=== PATIENT | female | born 1990 | race Native Hawaiian/Other Pacific Islander ===

== ENCOUNTER → 2021-12-05 | Outpatient (CLI) | payer MEDICAID ==
--- NOTE | 2021-12-05 18:45 | Diagnostic Imaging Report ---
INDICATION: survey. TECHNIQUE: Multiple real-time grayscale images were obtained over the gravid uterus. COMPARISON: None. FINDINGS: There is single live fetus in transverse presentation with head to maternal left. heart rate was recorded at 161 BPM. Placenta is posterior. Amniotic fluid volume is normal. Cervical length is 3.4 cm. survey shows kidneys, bladder and stomach to be unremarkable. brain is unremarkable. There is a four-chamber heart. There is a three-vessel cord with normal insertion. spine is unremarkable. Biometrical measurements are as follows: Biparietal 4.49 cm, age 19 weeks 5 days. Head circumference 16.82 cm, age 19 weeks 4 days. Abdominal circumference 15.36 cm, age 20 weeks 4 days. Femur length 2.89 cm, age 19 weeks 0 days. Sonographic estimate age: 19 weeks 5 days. Sonographic estimated date of delivery: 04/26/2022. Estimated Weight: 311 gm (+/- 46 gm). LMP percentile: 65%. heart rate: 161 beats per minute. number: 1 of 1. IMPRESSION: Single live IUP of 19 weeks 5 days gestational age. Estimated date of confinement sonographically is 04/26/2022. Dictated by: Dictated on workstation # [id number]
== END ==
LOC: RAD 12:30
PROVIDERS: ATTEND Obstetrics & Gynecology
DX: Z34.02 Encounter for supervision of normal first pregnancy, second trimester (principal); Z3A.19 19 weeks gestation of pregnancy
CPT/HCPCS: 76805

== ENCOUNTER 2022-02-23 21:37 | Inpatient (IN) | payer MEDICAID ==
[~2022-02-23] VITALS: Ht 152.4 cm; Wt 68.4 kg
--- NOTE | 2022-02-23 22:09 | ED General ---
General Stated Complaint: SEPTIC Source of Information: Patient, Family (sig other) Exam Limitations: No Limitations History of Present Illness Date Seen by Provider: Feb 23, 2022 Time Seen by Provider: 21:52 Initial Comments Patient is a 31-year-old female, A1 with an estimated due date April 28, 2022 who presents to the emergency department with a chief complaint of being "septic". Patient states that she went to [facility] 2 nights ago on Saturday with complaints of abdominal cramping, contractions. She states as does her significant other that she was evaluated, a swab was placed in her vagina and she was told to go home. No laboratory studies or ultrasound or other evaluation was reported by the patient. She states she is "been in the bed" since Saturday not feeling well. She states she subsequently went back in the middle of the night night and on evaluation arm was palpated in the vagina and she subsequently delivered a stillborn . Per reported due date of April 28 she would have been approximately 30 5/7 weeks gestation. Patient states that she did receive IV antibiotics while at [facility]. But both she and her significant other felt like they were not being treated appropriately and elected to leave that hospital AGAINST MEDICAL ADVICE and pursue treatment here. Patient states she has been receiving her care from Dr. Golden. She denies any significant pain currently. Per review of the medical records from [place] she was febrile (101) and there was concern for chorioamnionitis. She does admit to methamphetamine use approximately 2 weeks ago. No reports of URI, runny nose, congestion, sore throat. No cough or shortness of breath. No nausea or vomiting. No diarrhea. She has been having a foul- smelling vaginal discharge since delivery she states. She was exposed to COVID a few weeks ago and is not vaccinated. Allergies she states are to Bactrim, penicillin and cephalexin. She has had a former LEEP procedure. No other surgeries. All other review of systems reviewed and negative except as stated Timing/Duration: 1-2 Days Associated Systoms: Malaise Allergies and Home Medications Allergies Coded Allergies: Penicillins (Unverified Allergy, Unknown, 12/10/14) cephalexin (Unverified Allergy, Unknown, 12/10/14) sulfamethoxazole (Verified Allergy, Unknown, 02/23/22) trimethoprim (Verified Allergy, Unknown, 02/23/22) Patient Home Medication List Home Medication List Reviewed: Yes Review of Systems Review of Systems Constitutional: see HPI EENTM: no symptoms reported Respiratory: no symptoms reported Cardiovascular: no symptoms reported Gastrointestinal: abdominal pain : No Musculoskeletal: no symptoms reported Skin: no symptoms reported All Other Systems Reviewed Negative Unless Noted: Yes Past Sbcrebl-Omnhsm-Njhaiq Hx Immunizations Up To Date Tetanus Booster (TDap): Unknown Past Medical History Female Reproductive Disorders: Ovarian Cyst Chronic Back Pain Anxiety Adverse Reaction/Blood Tranf: No Physical Exam Vital Signs Vital Signs - First Documented Capillary Refill : Height, Weight, BMI Height: 5'6" Weight: 144lbs. oz. 65.548811zl; BMI Method: General Appearance: No Apparent Distress, WD/WN Eyes: Bilateral Eye Normal Inspection, Bilateral Eye PERRL, Bilateral Eye EOMI HEENT: PERRL/EOMI, Moist Mucous Membranes Neck: Full Range of Motion, Normal Inspection, Supple Respiratory: Lungs Clear, Normal Breath Sounds, No Accessory Muscle Use, No Respiratory Distress Cardiovascular: Regular Rate, Rhythm, Normal Peripheral Pulses, Tachycardia (103) Gastrointestinal: Normal Bowel Sounds, Soft, Tenderness (mild suprapubic and lower abdominal tenderness; fundus 3 fb below umbilicus) Genital/Rectal: Other ( deferred) Extremity: Normal Capillary Refill, Normal Range of Motion, No Calf Tenderness, No Pedal Edema Neurologic/Psychiatric: Alert, Oriented x3, No Motor/Sensory Deficits, Normal Mood/Affect, Other (no clonus; 2+ patellar reflexes bilat) Skin: Warm/Dry, Pallor (alightly pale) Focused Exam Sepsis Stage: Sepsis Possible Source: Genitouriary Lactate Level 02/23/22 22:12: Lactic Acid Level 1.23 Time of Focused Exam: 23:00 Respiratory: Lungs Clear, Normal Breath Sounds, No Accessory Muscle Use, No Respiratory Distress Cardiovascular: Regular Rate, Rhythm (80's), Normal Peripheral Pulses Capillary Refill: Less Than 3 Seconds Peripheral Pulses: 2+ Radial Pulses (R), 2+ Radial Pulses (L) Skin: warm/dry, pallor (slightly pale) Lactic Acid Level Laboratory Tests Test 02/23/22 22:12 Lactic Acid Level 1.23 MMOL/L (0.50-2.00) Within 3hrs of presentation: Admin fluids, Admin ABX, Blood cultures prior to ABX's, Focus exam, Lactate level Progress/Results/Core Measures Suspected Sepsis SIRS Temperature: Pulse: Respiratory Rate: Laboratory Tests 02/23/22 22:12: White Blood Count 42.8*H Blood Pressure / Mean: 02/23/22 22:12: Lactic Acid Level 1.23 Laboratory Tests 02/23/22 22:12: Creatinine 0.99, INR Comment 1.1, Platelet Count 217, Total Bilirubin 0.3 Results/Orders Lab Results Laboratory Tests Test 02/23/22 22:12 02/23/22 22:38 02/23/22 22:53 02/23/22 23:01 Range/Units White Blood Count 42.8 *H 4.3-11.0 10^3/uL Red Blood Count 3.58 L 3.80-5.11 10^6/uL Hemoglobin 11.8 11.5-16.0 g/dL Hematocrit 33 L 35-52 % Mean Corpuscular Volume 91 80-99 fL Mean Corpuscular Hemoglobin 33 25-34 pg Mean Corpuscular Hemoglobin Concent 36 32-36 g/dL Red Cell Distribution Width 12.9 10.0-14.5 % Platelet Count 217 130-400 10^3/uL Mean Platelet Volume 10.7 9.0-12.2 fL Immature Granulocyte % (Auto) 3 % Neutrophils (%) (Auto) 87 H 42-75 % Lymphocytes (%) (Auto) 5 L 12-44 % Monocytes (%) (Auto) 5 0-12 % Eosinophils (%) (Auto) 0 0-10 % Basophils (%) (Auto) 0 0-10 % Neutrophils # (Auto) 37.2 H 1.8-7.8 10^3/uL Lymphocytes # (Auto) 2.1 1.0-4.0 10^3/uL Monocytes # (Auto) 2.1 H 0.0-1.0 10^3/uL Eosinophils # (Auto) 0.0 0.0-0.3 10^3/uL Basophils # (Auto) 0.0 0.0-0.1 10^3/uL Immature Granulocyte # (Auto) 1.3 H 0.0-0.1 10^3/uL Neutrophils % (Manual) 90 % Lymphocytes % (Manual) 7 % Monocytes % (Manual) 3 % Toxic Granulation 1+ Eugene Cells SLIGHT Prothrombin Time 14.7 12.2-14.7 SEC INR Comment 1.1 0.8-1.4 Activated Partial Thromboplast Time 38 H 24-35 SEC Sodium Level 133 L 135-145 MMOL/L Potassium Level 3.6 3.6-5.0 MMOL/L Chloride Level 106 98-107 MMOL/L Carbon Dioxide Level 15 L 21-32 MMOL/L Anion Gap 12 5-14 MMOL/L Blood Urea Nitrogen 16 7-18 MG/DL Creatinine 0.99 0.60-1.30 MG/DL Estimat Glomerular Filtration Rate 77 BUN/Creatinine Ratio 16 Glucose Level 89 70-105 MG/DL Lactic Acid Level 1.23 0.50-2.00 MMOL/L Calcium Level 8.8 8.5-10.1 MG/DL Corrected Calcium 10.0 8.5-10.1 MG/DL Magnesium Level 1.6 1.6-2.4 MG/DL Total Bilirubin 0.3 0.1-1.0 MG/DL Aspartate Amino Transf (AST/SGOT) 17 5-34 U/L Alanine Aminotransferase (ALT/SGPT) 10 0-55 U/L Alkaline Phosphatase 199 H 40-136 U/L C-Reactive Protein High Sensitivity 37.18 H 0.00-0.50 MG/DL Total Protein 5.7 L 6.4-8.2 GM/DL Albumin 2.5 L 3.2-4.5 GM/DL Urine Color YELLOW Urine Clarity SL CLOUDY Urine pH 5.5 5-9 Urine Specific [place] 1.010 L 1.016-1.022 Urine Protein TRACE H NEGATIVE Urine Glucose (UA) NEGATIVE NEGATIVE Urine Ketones NEGATIVE NEGATIVE Urine Nitrite NEGATIVE NEGATIVE Urine Bilirubin NEGATIVE NEGATIVE Urine Urobilinogen 1.0 < = 1.0 MG/DL Urine Leukocyte Esterase TRACE H NEGATIVE Urine RBC (Auto) 3+ H NEGATIVE Urine RBC 2-5 H /HPF Urine WBC 2-5 /HPF Urine Squamous Epithelial Cells 0-2 /HPF Urine Crystals NONE /LPF Urine Bacteria FEW H /HPF Urine Casts PRESENT /LPF Urine Hyaline Casts RARE /LPF Urine Mucus NEGATIVE /LPF Urine Culture Indicated CULTURE PENDING SARS-CoV-2 RNA (RT-PCR) Not Detected Not Detecte Urine Opiates Screen NEGATIVE NEGATIVE Urine Oxycodone Screen NEGATIVE NEGATIVE Urine Methadone Screen NEGATIVE NEGATIVE Urine Propoxyphene Screen NEGATIVE NEGATIVE Urine Barbiturates Screen NEGATIVE NEGATIVE Ur Tricyclic Antidepressants Screen NEGATIVE NEGATIVE Urine Phencyclidine Screen NEGATIVE NEGATIVE Urine Amphetamines Screen NEGATIVE NEGATIVE Urine Methamphetamines Screen NEGATIVE NEGATIVE Urine Benzodiazepines Screen NEGATIVE NEGATIVE Urine Cocaine Screen NEGATIVE NEGATIVE Urine Cannabinoids Screen NEGATIVE NEGATIVE Micro Results Microbiology 02/23/22 Urine Culture - Preliminary, Resulted Gram Negative Rei 02/23/22 Wet Prep - Final, Complete 02/23/22 Blood Culture - Preliminary, Resulted No growth 02/23/22 Blood Culture - Preliminary, Resulted No growth My Orders Orders - BJ ROMO MD Cbc With Automated Diff (02/23/22 22:02) Comprehensive Metabolic Panel (02/23/22 22:02) Blood Culture (02/23/22:02) Sputum Culture (02/23/22:02) Urinalysis (02/23/22:) Urine Culture (02/23/22:02) Protime With Inr (02/23/22:) Partial Thromboplastin Time (02/23/22:02) Chest 1 View, Ap/Pa Only (02/23/22:02) Ed Iv/Invasive Line Start (02/23/22 22:02) Ed Iv/Invasive Line Start (02/23/22 22:02) Vital Signs Adult Sepsis Patie Q15M (02/23/22:02) O2 (02/23/22:02) Remove Rings In Anticipation O (02/23/22:02) Lactic Acid Analyzer (02/23/22 22:02) Hs C Reactive Protein (02/23/22:02) Magnesium (02/23/22 22:02) Ns Iv 1000 Ml (Sodium Chloride 0.9%) (02/23/22 22:15) Covid 19 Inhouse Test (02/23/22 22:09) Isolation Central Supply Req (02/23/22 22:09) Genital Culture (02/23/22 22:09) Manual Differential (02/23/22 22:12) Chlamydia Trachomatis Swab (02/23/22 22:46) Neisseria Gonorrhea Swab (02/23/22 22:46) Wet Prep (02/23/22 22:46) Straight Cath (Urinary) (02/23/22 22:54) Drug Screen Stat (Urine) (02/23/22 23:00) Ns Iv 1000 Ml (Sodium Chloride 0.9%) (02/23/22 23:00) Vital Signs/I&O 02/23/22 02/23/22 21:50 21:50 Temp 36.4 Pulse 97 Resp 16 B/P (MAP) 103/69 (80) Pulse Ox 99 O2 Delivery Room Air Room Air Capillary Refill : Progress Note : Time: 23:00 Progress Note Discussed with Dr. Garcia on for Dr. Golden. Would like the patient on MedSurg. Clindamycin 900 mg IV every 8 hours and gentamicin 7.5 mg/kg/day IV. He states she may eat. He would like Tylenol [id number] every 6 hours 1 g. He anticipates that she may need to be in for a couple of days. Plan of care was communicated to the patient and her significant other, she is agreeable. Diagnostic Imaging Diagonstic Imaging: Xray Plain Films/CT/US/NM/MRI: chest Comments [facility], [place] NAME: [facility] REC#: [id number] PT STATUS: REG ER : 1990 PHYSICIAN: BJ ROMO MD ADMIT DATE: 02/23/22/ER Signed Date of Exam:02/23/22 CHEST 1 VIEW, AP/PA ONLY EXAMINATION: Chest 1 view. HISTORY: "Sepsis" post delivery today demise COMPARISON: None available. FINDINGS: The lungs are clear without edema or pneumonia. No pleural effusion or pneumothorax. Heart size is normal. IMPRESSION: Clear lungs. Dictated by: Dictated on workstation # [id number] Dict: 02/23/222246 Trans: 02/23/222249 [facility] [id number] Interpreted by: RIYA DUNHAM MD Electronically signed by: RIYA DUNHAM MD 02/23/222249 Departure Communication (Admissions) Time/Spoke to Admitting Phy: 22:[address] Garcia, OB - would like Clinda 900mg IV Q3 and gent 7.5mg/kg/day Impression Primary Impression: Sepsis after obstetrical procedure Disposition: ADMITTED INPATIENT Condition: Stable Admissions Decision to Admit Reason: Admit from ER (General) Decision to Admit/Date: Feb 23, 2022 Time/Decision to Admit Time: 22:31 Departure-Patient Inst. Referrals: [facility] (PCP/Family) Primary Care Physician BJ ROMO MD Feb 23, 2022 22:09
[2022-02-23] MEDS ORDERED: NS IV 1000 ML 1,000 ML IV SCH ×2 (22:15→23:00)
[2022-02-23 22:18] LABS: BASOPHILS % (AUTO) 0 % (0-10); EOSINOPHILS % (AUTO) 0 % (0-10); HEMATOCRIT 33 % (35-52); HEMOGLOBIN 11.8 g/dL (11.5-16.0); LYMPHOCYTES # (AUTO) 2.1 10^3/uL (1.0-4.0); LYMPHOCYTES % (AUTO) 5 % (12-44); MEAN CORPUSCULAR HEMOGLOBIN 33 pg (25-34); MEAN CORPUSCULAR HGB CONC 36 g/dL (32-36); MEAN CORPUSCULAR VOLUME 91 fL (80-99); MEAN PLATELET VOLUME 10.7 fL (9.0-12.2); MONOCYTES # (AUTO) 2.1 10^3/uL (0.0-1.0); MONOCYTES % (AUTO) 5 % (0-12); NEUTROPHILS # (AUTO) 37.2 10^3/uL (1.8-7.8); NEUTROPHILS % (AUTO) 87 % (42-75); PLATELET COUNT 217 10^3/uL (130-400)
[2022-02-23 22:19] LABS: WHITE BLOOD COUNT 42.8 10^3/uL (4.3-11.0)
[2022-02-23 22:25] LABS: ALBUMIN 2.5 GM/DL (3.2-4.5); POTASSIUM 3.6 MMOL/L (3.6-5.0)
[2022-02-23 22:26] LABS: CALCIUM 8.8 MG/DL (8.5-10.1)
[2022-02-23 22:28] LABS: INR 1.1 (0.8-1.4); PROTHROMBIN TIME PATIENT 14.7 SEC (12.2-14.7); TOTAL PROTEIN 5.7 GM/DL (6.4-8.2)
[2022-02-23 22:29] LABS: BILIRUBIN,TOTAL 0.3 MG/DL (0.1-1.0)
[2022-02-23 22:31] LABS: CREATININE SERUM 0.99 MG/DL (0.60-1.30)
[2022-02-23 22:34] LABS: MAGNESIUM 1.6 MG/DL (1.6-2.4)
[2022-02-23 22:47] LABS: BURR CELLS SLIGHT; LYMPHOCYTES % (MANUAL) 7 %; MONOCYTES % (MANUAL) 3 %; NEUTROPHILS % (MANUAL) 90 %; TOXIC GRANULATION/VACUOLAZATIO 1+
--- NOTE | 2022-02-23 22:50 | Diagnostic Imaging Report ---
EXAMINATION: Chest 1 view. HISTORY: "Sepsis" post delivery today demise COMPARISON: None available. FINDINGS: The lungs are clear without edema or pneumonia. No pleural effusion or pneumothorax. Heart size is normal. IMPRESSION: Clear lungs. Dictated by: Dictated on workstation # [id number]
[2022-02-23 22:53] LABS: BILIRUBIN,URINE NEGATIVE (NEGATIVE); CLARITY,URINE SL CLOUDY; COLOR,URINE YELLOW; GLUCOSE, URINE (UA) NEGATIVE (NEGATIVE); KETONES,URINE NEGATIVE (NEGATIVE); LEUKOCYTE ESTERASE ,URINE TRACE (NEGATIVE); NITRITE,URINE NEGATIVE (NEGATIVE); PH,URINE 5.5 (5-9); PROTEIN,URINE TRACE (NEGATIVE)
[2022-02-23 23:02] LABS: BACTERIA,URINE FEW /HPF; HYALINE CASTS, URINE RARE /LPF; SQUAMOUS EPITHELIAL CELL,UR 0-2 /HPF
[2022-02-23 23:14] LABS: AMPHETAMINE SCREEN, URINE NEGATIVE (NEGATIVE); BARBITURATE SCREEN URINE NEGATIVE (NEGATIVE); BENZODIAZEPINES SCREEN URINE NEGATIVE (NEGATIVE); CANNABINOID SCREEN, URINE NEGATIVE (NEGATIVE); COCAINE SCREEN URINE NEGATIVE (NEGATIVE); OPIATE SCREEN URINE NEGATIVE (NEGATIVE); OXYCODONE STAT NEGATIVE (NEGATIVE); PROPOXYPHENE STAT NEGATIVE (NEGATIVE); TRICYCLIC ANTIDEPRESSANTS SCRE NEGATIVE (NEGATIVE)
[2022-02-23 23:15] LABS: METHADONE STAT NEGATIVE (NEGATIVE)
[2022-02-23] MEDS ORDERED: CLINDAMYCIN 900 MG/50 ML IVPB 50 ML IV ONE (23:15)
[2022-02-24] VITALS (7 sets, daily range): BP systolic 95–114; BP diastolic 54–72
[2022-02-24] MEDS ORDERED: ONDANSETRON 4 MG/2 ML (SDV) Z0FRAN IVP PRN (01:15)
[2022-02-24] MEDS ORDERED: ACETAMINOPHEN 500 MG TAB (TYLENOL) PO PRN (01:15)
[2022-02-24] MEDS: NS IV 1000 ML 1,000 ML IV SCH ×4 (01:32→23:34)
[2022-02-24] MEDS ORDERED: RT-ALBUTEROL/IPRATROPIUM 3 ML (DUONEB) VIAL INH PRN (02:15)
[2022-02-24 05:27] LABS: BASOPHILS % (AUTO) 0 % (0-10); EOSINOPHILS # (AUTO) 0.1 10^3/uL (0.0-0.3); EOSINOPHILS % (AUTO) 0 % (0-10); HEMATOCRIT 30 % (35-52); HEMOGLOBIN 10.3 g/dL (11.5-16.0); LYMPHOCYTES % (AUTO) 6 % (12-44); MEAN CORPUSCULAR HEMOGLOBIN 32 pg (25-34); MEAN CORPUSCULAR HGB CONC 35 g/dL (32-36); MEAN CORPUSCULAR VOLUME 93 fL (80-99); MEAN PLATELET VOLUME 11.4 fL (9.0-12.2); MONOCYTES # (AUTO) 1.4 10^3/uL (0.0-1.0); MONOCYTES % (AUTO) 4 % (0-12); NEUTROPHILS # (AUTO) 29.8 10^3/uL (1.8-7.8); NEUTROPHILS % (AUTO) 88 % (42-75); PLATELET COUNT 198 10^3/uL (130-400)
[2022-02-24 05:31] LABS: WHITE BLOOD COUNT 33.8 10^3/uL (4.3-11.0)
[2022-02-24] MEDS: CLINDAMYCIN 600 MG/50 ML IVPB 50 ML IV SCH ×3 (07:34→23:34)
[2022-02-24] MEDS: GENTAMICIN IV SCH (08:02)
[2022-02-24] MEDS: NS IV SCH (08:02)
--- NOTE | 2022-02-24 08:34 | History & Physical-OB/GYN ---
History of Present Illness History of Present Illness Reason for visit/HPI Chief complaint: Endometritis Patient is a 31 year old having delivered by vaginal route Thday night at a hospital in [place] and noted to have endometritis. She checked herself out against medical advice and choose to come to this facility for care. She reports she had a delivery of a 30 week fetus she believes was alive but not resuscitated, however her history may be more compatible with an intrauterine demise. She presented 2 days before to rule out SROM and was told the test was negative. Upon representation to the same facility for pelvic pressure she noted a hand coming from the vagina at presentation and delivered soon after, possibly within a few minutes of presentation. Soon afterwards she had chills, Temperature over 101 and under 98, foul vaginal discharge. She was started on antibiotics but left within 24 hours and presented to this ER. She reports she was seeing Dr Golden without any problems and no prior complications with her previous 2 term deliveries. She has had 2 miscarriages, one requiring a D&C. She has had a LEEP. She currently feels much better with no chills, fevers but continued foul vaginal discharge. Date of Admission Feb 23, 2022 at 23:02 Date Seen by a Provider: Feb 24, 2022 Time Seen by a Provider: 07:45 I consulted on this patient on Attending Physician Wyatt Ghotra Np Admitting Physician Admitting Physician: Morenita Gibson MD Attending Physician: Morenita Gibson MD Consult Allergies and Home Medications Allergies Coded Allergies: Penicillins (Unverified Allergy, Unknown, 12/10/14) cephalexin (Unverified Allergy, Unknown, 12/10/14) sulfamethoxazole (Verified Allergy, Unknown, 02/23/22) trimethoprim (Verified Allergy, Unknown, 02/23/22) Patient Home Medication List Home Medication List Reviewed: Yes Past Srpgdgo-Wprxsf-Tvegaq Hx Patient Social History Smoking Status: Current Everyday Smoker Cigaretts per day: 10 Social History She reports methamphetamine use during and last reported use was 2 weeks ago. Current UDS negative. Have you traveled recently?: No Alcohol Use?: No Substance type: Methamphetamine Pt feels they are or have been: No Tobacco type used: Cigarettes Immunizations Up To Date Tetanus Booster (TDap): Unknown Surgeries Yes Respiratory No Cardiovascular Irregular Heartbeat Reproductive System : No Hx : 5 Hx Para: 2121 Hx Total # of Abortions (Spona: 2 Hx Reproductive Disorders: No Sexually Transmitted Disease: No HIV/AIDS: No Female Reproductive Disorders: Ovarian Cyst Genitourinary No Gastrointestinal No Musculoskeletal Yes Chronic Back Pain Endocrine History of Endocrine Disorders: No HEENT History of HEENT Disorders: No Cancer No Psychosocial History of Psychiatric Problem: Yes Behavioral Health Disorders: Anxiety, PTSD, Bipolar, Depression Integumentary History of Skin or Integumenta: No Blood Transfusions Adverse Reaction to a Blood Tr: No Family Medical History Significant Family History: No Pertinent Family Hx Review of Systems Constitutional: No no symptoms reported, No see HPI, No chills, No diaphoresis, No dizziness, No fever, No malaise, No weakness, No weight gain, No weight loss, No other EENTM: No see HPI, No no symptoms reported, No ear discharge, No hearing loss, No ear pain, No blurred vision, No double vision, No eye pain, No tearing, No vision loss, No dental problems, No hoarseness, No mouth pain, No mouth swelling, No epistaxis, No nose congestion, No nose pain, No throat pain, No throat swelling, No other Respiratory: No no symptoms reported, No see HPI, No cough, No dyspnea on exertion, No hemoptysis, No orthopnea, No phlegm, No short of breath, No stridor, No wheezing, No other Cardiovascular: No no symptoms reported, No see HPI, No chest pain, No edema, No Hx of Intervention, No palpitations, No syncope, No vascular heart diseas, No other Gastrointestinal: No RUQ, No LUQ, No RLQ, No LLQ, No no symptoms reported, No see HPI, No abdominal pain, No constipation, No diarrhea, No dysphagia, No hematemesis, No heartburn, No jaundice, No loss of appetite, No melena, No nausea, No vomiting, No other Genitourinary: No no symptoms reported, No see HPI, No decreased output, No discharge, No dysuria, No frequency, No hematuria, No hesitancy, No incontinence, No nocturia, No pain, No other : No Musculoskeletal: No no symptoms reported, No see HPI, No back pain, No gout, No joint pain, No joint swelling, No muscle pain, No muscle stiffness, No muscle cramps, No muscle twitching, No muscle weakness, No neck pain, No other Skin: No no symptoms reported, No see HPI, No change in color, No change in hair/nails, No dryness, No hx of skin cancer, No lesions, No lumps, No pruritus, No rash, No other Psychiatric/Neurological: Denies No Symptoms Reported, Denies See HPI, Denies Anxiety, Denies Depressed, Denies Emotional Problems, Denies Headache, Denies Numbness, Denies Paresthesia, Denies Pre-Existing Deficit, Denies Seizure, Denies Tingling, Denies Tremors, Denies Weakness, Denies Other Physical Exam Physical Exam Vital Signs Vital Signs Date Time Temp Pulse Resp B/P (MAP) Pulse Ox O2 Delivery O2 Flow Rate FiO2 02/24/22 08:05 98 Room Air 02/24/22 08:00 36.5 79 18 108/54 (72) 97 Room Air 02/24/22 04:07 36.1 84 16 104/62 (76) 98 Room Air 02/24/22 01:56 36.1 81 99 02/24/22 01:26 Room Air 02/24/22 00:49 36.1 81 16 95/57 (70) 98 Room Air 02/24/22 00:30 36.4 89 16 109/72 99 Room Air 02/23/22 21:50 Room Air 02/23/22 21:50 36.4 97 16 103/69 (80) 99 Room Air I & O 02/24/22 07:00 Intake Total 2050 ml Output Total 2000 ml Balance 50 ml Capillary Refill : Less Than 3 Seconds Labs Laboratory Tests 02/23/22 22:12: White Blood Count 42.8*H, Red Blood Count 3.58L, Hemoglobin 11.8, Hematocrit 33L , Mean Corpuscular Volume 91, Mean Corpuscular Hemoglobin 33, Mean Corpuscular Hemoglobin Concent 36, Red Cell Distribution Width 12.9, Platelet Count 217, Mean Platelet Volume 10.7, Immature Granulocyte % (Auto) 3, Neutrophils (%) (Auto) 87H, Lymphocytes (%) (Auto) 5L, Monocytes (%) (Auto) 5, Eosinophils (%) (Auto) 0, Basophils (%) (Auto) 0, Neutrophils # (Auto) 37.2H, Lymphocytes # (Auto) 2.1, Monocytes # (Auto) 2.1H, Eosinophils # (Auto) 0.0, Basophils # (Auto) 0.0, Immature Granulocyte # (Auto) 1.3H, Neutrophils % (Manual) 90, Lymphocytes % (Manual) 7, Monocytes % (Manual) 3, Toxic Granulation 1+, [place] Cells SLIGHT, Prothrombin Time 14.7, INR Comment 1.1, Activated Partial Thromboplast Time 38H, Sodium Level 133L, Potassium Level 3.6, Chloride Level 106, Carbon Dioxide Level 15L, Anion Gap 12, Blood Urea Nitrogen 16, Creatinine 0.99, Estimat Glomerular Filtration Rate 77, BUN/Creatinine Ratio 16, Glucose Level 89, Lactic Acid Level 1.23, Calcium Level 8.8, Corrected Calcium 10.0, Magnesium Level 1.6, Total Bilirubin 0.3, Aspartate Amino Transf (AST/SGOT) 17, Alanine Aminotransferase (ALT/SGPT) 10, Alkaline Phosphatase 199H, C-Reactive Protein High Sensitivity 37.18H, Total Protein 5.7L, Albumin 2.5L 02/23/22 22:38: Urine Color YELLOW, Urine Clarity SL CLOUDY, Urine pH 5.5, Urine Specific [place] 1.010L, Urine Protein TRACEH, Urine Glucose (UA) NEGATIVE, Urine Ketones NEGATIVE, Urine Nitrite NEGATIVE, Urine Bilirubin NEGATIVE, Urine Urobilinogen 1.0, Urine Leukocyte Esterase TRACEH, Urine RBC (Auto) 3+H, Urine RBC 2-5H, Urine WBC 2-5, Urine Squamous Epithelial Cells 0-2, Urine Crystals NONE, Urine Bacteria FEWH, Urine Casts PRESENT, Urine Hyaline Casts RARE, Urine Mucus NEGATIVE, Urine Culture Indicated CULTURE PENDING 02/23/22 22:53: SARS-CoV-2 RNA (RT-PCR) Not Detected 02/23/22 23:01: Urine Opiates Screen NEGATIVE, Urine Oxycodone Screen NEGATIVE, Urine Methadone Screen NEGATIVE, Urine Propoxyphene Screen NEGATIVE, Urine Barbiturates Screen NEGATIVE, Ur Tricyclic Antidepressants Screen NEGATIVE, Urine Phencyclidine Screen NEGATIVE, Urine Amphetamines Screen NEGATIVE, Urine Methamphetamines Screen NEGATIVE, Urine Benzodiazepines Screen NEGATIVE, Urine Cocaine Screen NEGATIVE, Urine Cannabinoids Screen NEGATIVE 02/24/22 04:59: White Blood Count 33.8*H, Red Blood Count 3.18L, Hemoglobin 10.3L, Hematocrit 30L, Mean Corpuscular Volume 93, Mean Corpuscular Hemoglobin 32, Mean Corpuscular Hemoglobin Concent 35, Red Cell Distribution Width 13.2, Platelet Count 198, Mean Platelet Volume 11.4, Immature Granulocyte % (Auto) 2, Neutrophils (%) (Auto) 88H, Lymphocytes (%) (Auto) 6L, Monocytes (%) (Auto) 4, Eosinophils (%) (Auto) 0, Basophils (%) (Auto) 0, Neutrophils # (Auto) 29.8H, Lymphocytes # (Auto) 2.0, Monocytes # (Auto) 1.4H, Eosinophils # (Auto) 0.1, B asophils # (Auto) 0.0, Immature Granulocyte # (Auto) 0.5H Microbiology 02/23/22 Wet Prep - Final, Complete General Appearance: No Apparent Distress, WD/WN Respiratory: Chest Non Tender, Lungs Clear, Normal Breath Sounds, No Accessory Muscle Use, No Respiratory Distress Cardiovascular: Regular Rate, Rhythm, No Edema, No Gallop, No JVD, Normal Peripheral Pulses Abdominal: normal bowel sounds, non tender, soft, no organomegaly, no pulsatile mass Extremity: Normal Capillary Refill, Normal Inspection, Calf Tenderness Assessment/Plan Assessment and Plan Endometritis, improving Anticipate discharge tomorrow after another 24 hours of antibiotics Because of foul odor, ultrasound to rule out retained placenta/ membranes. Problems: (1) delivery Onset Date: ~ 02/22/2022 (2) demise (3) Endometritis following delivery Status: Acute Admission Diagnosis Admission Status: Inpatient Order (span 2 midnights) Reason for Inpatient Admission: infection requiring IV antibiotics MORENITA GIBSON MD Feb 24, 2022 08:34
--- NOTE | 2022-02-24 10:08 | Diagnostic Imaging Report ---
PROCEDURE: US PELVIC (NON OB). TECHNIQUE: Multiple Real-time grayscale images were obtained over the pelvis in various projections transabdominally. INDICATION: , chorioamnionitis, COMPARISON: 12/25/2021. FINDINGS: The uterus is enlarged measuring 16.6 x 14.7 x 10.7 cm. This is consistent with the recent post-gravid state. A small amount of fluid is noted within the endometrial cavity. The endometrium itself is mildly thickened measuring 1.6 cm. The endometrium is slightly heterogeneous with some shadowing hyperechogenicity. No focal uterine mass. Additional echogenic debris is identified extending into the cervix. The bilateral ovaries were unable be visualized. No significant free fluid within the lower pelvis. IMPRESSION: Heterogeneous appearance of the endometrium. This is felt to relate to the recent state. Debris with additional gas lucencies within the endometrial cavity are present which also may relate to recent state though infection is not completely excluded. Vascularity, however, is not significantly increased involving the endometrium. Nonvisualization of the bilateral ovaries. Dictated by: Dictated on workstation # [id number]
--- NOTE | 2022-02-24 14:10 | Progress Note ---
Standard Progress Note Progress Notes/Assess & Plan Date Seen by a Provider: Feb 24, 2022 Time Seen by a Provider: 13:04 Progress/Assessment & Plan US reviewed. Focused Exam Lactate Level 02/23/22 22:12: Lactic Acid Level 1.23 Time of Focused Exam: 23:00 Diagnosis/Problems Diagnosis/Problems (1) delivery Onset Date: ~ 02/22/2022 (2) demise Onset Date: ~ 02/22/2022 (3) Endometritis following delivery Onset Date: ~ 02/22/2022 Status: Acute MORENITA GIBSON MD Feb 24, 2022 14:10
[2022-02-24] MEDS ORDERED: TROUGH ORDER-PHARMACY XX NR (18:00)
[2022-02-25 00:08] VITALS: BP 127/67
[2022-02-25 04:03] VITALS: BP 110/62
[2022-02-25] MEDS: GENTAMICIN IV SCH (06:30)
[2022-02-25] MEDS: NS IV SCH (06:30)
[2022-02-25 06:38] LABS: BASOPHILS # (AUTO) 0.1 10^3/uL (0.0-0.1); BASOPHILS % (AUTO) 1 % (0-10); EOSINOPHILS # (AUTO) 0.1 10^3/uL (0.0-0.3); EOSINOPHILS % (AUTO) 1 % (0-10); HEMATOCRIT 30 % (35-52); HEMOGLOBIN 9.9 g/dL (11.5-16.0); LYMPHOCYTES # (AUTO) 2.1 10^3/uL (1.0-4.0); LYMPHOCYTES % (AUTO) 11 % (12-44); MEAN CORPUSCULAR HEMOGLOBIN 33 pg (25-34); MEAN CORPUSCULAR HGB CONC 33 g/dL (32-36); MEAN CORPUSCULAR VOLUME 98 fL (80-99); MEAN PLATELET VOLUME 11.1 fL (9.0-12.2); MONOCYTES % (AUTO) 6 % (0-12); NEUTROPHILS # (AUTO) 14.1 10^3/uL (1.8-7.8); NEUTROPHILS % (AUTO) 77 % (42-75); PLATELET COUNT 214 10^3/uL (130-400); WHITE BLOOD COUNT 18.3 10^3/uL (4.3-11.0)
[2022-02-25 07:57] VITALS: BP 132/74
[2022-02-25] MEDS: CLINDAMYCIN 600 MG/50 ML IVPB 50 ML IV SCH (08:43)
--- NOTE | 2022-02-25 09:30 | Discharge Inst-Women's Service ---
Discharge Inst-Women's Serv Depart Medication/Instructions New, Converted or Re-Newed RX: Call to Patients Pharmacy Problems Reviewed?: Yes Consults/Follow Up Additional Follow Up: Yes Activity Activity: Activity as Tolerated Driving Instructions: No Driving for 1 Week Nothing Inside Vagina: No Douching, No Arpin, No Tampons Diet Discharge Diet: No Restrictions Return to The Hospital For: Fevers, chills, worse pain, heavy vaginal bleeding depression. Symptoms to Report to : Swelling Increased, Bleeding Excessive, Vaginal Bleeding Increase, Cramps in Feet or Legs, Questions/Concerns For Any Problems or Questions: Go to Emergency Room MORENITA GIBSON MD Feb 25, 2022 09:29
--- NOTE | 2022-02-25 09:49 | Discharge Summary ---
Discharge Summary Hospital Course Problems Reviewed?: Yes Problems/Diagnosis: (1) delivery Onset Date: ~ 02/22/2022 Status: Resolved Resolution Date/Time: 02/22/22 @ 09:45 (2) demise Onset Date: ~ 02/22/2022 Status: Resolved Resolution Date/Time: 02/22/22 @ 09:45 (3) Endometritis following delivery Onset Date: ~ 02/22/2022 Status: Acute Hospital Course Date of Admission: Feb 23, 2022 at 23:02 Admission Diagnosis : Family Physician/Provider: Wyatt Ghotra Np Date of Discharge: 02/25/22 Discharge Diagnosis: [ ] Hospital Course: [ ] Labs and Pending Lab Test: Laboratory Tests 02/24/22 18:05: Random Gentamicin Level 2.4 02/25/22 06:25: White Blood Count 18.3H, Red Blood Count 3.05L, Hemoglobin 9.9L, Hematocrit 30L, Mean Corpuscular Volume 98, Mean Corpuscular Hemoglobin 33, Mean Corpuscular Hemoglobin Concent 33, Red Cell Distribution Width 14.1, Platelet Count 214, Mean Platelet Volume 11.1, Immature Granulocyte % (Auto) 5, Neutrophils (%) (Auto) 77H, Lymphocytes (%) (Auto) 11L, Monocytes (%) (Auto) 6, Eosinophils (%) (Auto) 1, Basophils (%) (Auto) 1, Neutrophils # (Auto) 14.1H, Lymphocytes # (Auto) 2.1, Monocytes # (Auto) 1.0, Eosinophils # (Auto) 0.1, Basophils # (Auto) 0.1, Immature Granulocyte # (Auto) 0.9H Microbiology 02/23/22 Urine Culture - Preliminary, Resulted Gram Negative Rei 02/23/22 Wet Prep - Final, Complete 02/23/22 Blood Culture - Preliminary, Resulted No growth Discharge Physical Examination Allergies: Coded Allergies: Penicillins (Unverified Allergy, Unknown, 12/10/14) cephalexin (Unverified Allergy, Unknown, 12/10/14) sulfamethoxazole (Verified Allergy, Unknown, 02/23/22) trimethoprim (Verified Allergy, Unknown, 02/23/22) Vitals & I&Os Vital Signs Date Time Temp Pulse Resp B/P (MAP) Pulse Ox O2 Delivery O2 Flow Rate FiO2 02/25/22 07:57 36.7 91 18 132/74 (93) 100 Room Air General Appearance: No Apparent Distress, WD/WN HEENT: PERRL/EOMI, TMs Normal, Normal ENT Inspection, Pharynx Normal Gastrointestinal: Normal Bowel Sounds, No Organomegaly, No Pulsatile Mass, Non Tender, Soft Skin: Normal Color, Warm/Dry Neurologic/Psychiatric: Alert, Oriented x3, No Motor/Sensory Deficits, Normal Mood/Affect (patient smiling readily for first time I have met her.) Discharge Summary Date of Admission Feb 23, 2022 at 23:02 Date of Discharge 02/25/2022 Discharge Date: Feb 25, 2022 Discharge Time: 12:00 Admission Diagnosis Endometritis Consults/Procedures Consulations None Procedures none Discharge Diagnosis (1) delivery Onset Date: ~ 02/22/2022 Status: Resolved (2) demise Onset Date: ~ 02/22/2022 Status: Resolved (3) Endometritis following delivery Onset Date: ~ 02/22/2022 Status: Acute Supervisory-Addendum Brief Verification & Attestation Participated in pt care: history, physical Personally performed: exam, history, supervision of care Care discussed with: Medical Student Procedures: n/a MORENITA Sandra MD Feb 25, 2022 09:47
== END 2022-02-25 11:20 | disposition home or self-care (01) | DRG 776 ==
LOC: EDUNIT# 21:37 → ER 21:39 → UNDOADMIN 23:02 → 4TH 23:02 → EDLOC 23:02 → 4TH 23:02 → UNDODISIN 02-25 11:20
PROVIDERS: ADMIT Obstetrics & Gynecology; ATTEND Obstetrics & Gynecology
DX: O86.12 Endometritis following delivery (principal); O86.04 Sepsis following an obstetrical procedure; A41.9 Sepsis, unspecified organism; Z20.822 Contact with and (suspected) exposure to COVID-19; G89.29 Other chronic pain; M54.9 Dorsalgia, unspecified; F41.9 Anxiety disorder, unspecified; O99.335 Smoking (tobacco) complicating the puerperium; F17.210 Nicotine dependence, cigarettes, uncomplicated; O99.345 Other mental disorders complicating the puerperium; F31.9 Bipolar disorder, unspecified; F43.10 Post-traumatic stress disorder, unspecified
CPT/HCPCS: 36415; 51701; 71045; 76856; 80053; 80170; 80306; 81000; 83605; 83735; 85007; 85025; 85027; 85610; 85730; 86141; 86850; 86900; 86901; 87040; 87070; 87077; 87088; 87186; 87205; 87210; 87491; 87591; 87636; 94760

== ENCOUNTER 2022-02-26 23:53 | Emergency (ER) | payer MEDICAID ==
[~2022-02-26] VITALS: Ht 152.4 cm; Wt 68.0 kg
[2022-02-27] MEDS ORDERED: CLINDAMYCIN 600 MG/50 ML IVPB 50 ML IV ONE (00:15)
[2022-02-27] MEDS ORDERED: NS IV 500 ML 500 ML IV ONE (00:15)
--- NOTE | 2022-02-27 00:15 | ED GU-Female ---
General Stated Complaint: VAG BLEEDING Source: patient, other Exam Limitations: no limitations History of Present Illness Date Seen by Provider: Feb 27, 2022 Time Seen by Provider: 00:01 Initial Comments The patient presents to the ER by private conveyance from home with chief complaint that she is having some vaginal bleeding and just got out of the hospi catrina yesterday. She was told if she had any bleeding she was to return to the ER. -1-2-2 status postdelivery last , 5 days prior by at [facility] and admitted for endometritis. Unfortunately she had a demise. She had checked out AMA and came to this facility for care and was discharged yesterday home. 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 She has a history of a LEEP. History of recent methamphetamine use 2 to 3 weeks ago. She was working on setting up a today and has not set up outpatient clinic visit with Dr. Hollins. She is not having any fevers chills nausea vomiting diarrhea or constipation. Allergies and Home Medications Allergies Coded Allergies: Penicillins (Unverified Allergy, Unknown, 12/10/14) cephalexin (Unverified Allergy, Unknown, 12/10/14) sulfamethoxazole (Verified Allergy, Unknown, 02/23/22) trimethoprim (Verified Allergy, Unknown, 02/23/22) Patient Home Medication List Home Medication List Reviewed: Yes No Active Prescriptions or Reported Meds Review of Systems Review of Systems Constitutional: No chills, No diaphoresis, No fever, No malaise EENTM: No ear discharge, No ear pain Respiratory: No cough, No short of breath Cardiovascular: No edema, No palpitations Gastrointestinal: abdominal pain (Occasional rare cramping abdominal pain); No constipation, No diarrhea, No nausea Genitourinary: see HPI; denies burning, denies discharge Musculoskeletal: No back pain, No joint pain All Other Systemes Reviewed Negative Unless Noted: Yes Past Nuotxpe-Uzjdgu-Yvqqrf Hx Patient Social History Tobacco Use?: No Use of E-Cig and/or Vaping dev: No Substance use?: Yes Substance type: Methamphetamine Immunizations Up To Date Tetanus Booster (TDap): Unknown Past Medical History Surgery/Hospitalization HX: LEEP Surgeries: Yes Respiratory: No Irregular Heartbeat Reproductive Disorders: No Female Reproductive Disorders: Ovarian Cyst Sexually Transmitted Disease: No HIV/AIDS: No Genitourinary: No Gastrointestinal: No Musculoskeletal: Yes Chronic Back Pain Endocrine: No HEENT: No Cancer: No Psychosocial: Yes Anxiety, PTSD, Bipolar, Depression Integumentary: No Adverse Reaction/Blood Tranf: No Family Medical History No Pertinent Family Hx Physical Exam Vital Signs Vital Signs - First Documented 02/27/22 00:03 Temp 36.2 Pulse 87 Resp 24 B/P (MAP) 157/92 (113) Pulse Ox 99 Capillary Refill : Height, Weight, BMI Height: 5'6" Weight: 144lbs. oz. 65.193199im; 29.45 BMI Method: General Appearance: WD/WN, no apparent distress HEENT: PERRL/EOMI, pharynx normal Neck: full range of motion, normal inspection Cardiovascular: normal peripheral pulses, regular rate, rhythm Respiratory: no respiratory distress, no accessory muscle use Gastrointestinal: normal bowel sounds, non tender, soft, no organomegaly Extremities: non-tender, normal inspection, normal capillary refill Neurologic/Psychiatric: alert, normal mood/affect, oriented x 3 Skin: normal color, warm/dry Progress/Results/Core Measures Suspected Sepsis SIRS Temperature: Pulse: Respiratory Rate: Laboratory Tests 02/27/22 00:11: White Blood Count 12.9H Blood Pressure / Mean: Laboratory Tests 02/27/22 00:11: Creatinine 0.73, Platelet Count 240 Results/Orders Lab Results Laboratory Tests Test 02/27/22 00:11 Range/Units White Blood Count 12.9 H 4.3-11.0 10^3/uL Red Blood Count 3.32 L 3.80-5.11 10^6/uL Hemoglobin 10.8 L 11.5-16.0 g/dL Hematocrit 31 L 35-52 % Mean Corpuscular Volume 93 80-99 fL Mean Corpuscular Hemoglobin 33 25-34 pg Mean Corpuscular Hemoglobin Concent 35 32-36 g/dL Red Cell Distribution Width 13.3 10.0-14.5 % Platelet Count 240 130-400 10^3/uL Mean Platelet Volume 10.9 9.0-12.2 fL Immature Granulocyte % (Auto) 18 % Neutrophils (%) (Auto) 50 42-75 % Lymphocytes (%) (Auto) 22 12-44 % Monocytes (%) (Auto) 9 0-12 % Eosinophils (%) (Auto) 1 0-10 % Basophils (%) (Auto) 1 0-10 % Neutrophils # (Auto) 6.4 1.8-7.8 10^3/uL Lymphocytes # (Auto) 2.8 1.0-4.0 10^3/uL Monocytes # (Auto) 1.2 H 0.0-1.0 10^3/uL Eosinophils # (Auto) 0.1 0.0-0.3 10^3/uL Basophils # (Auto) 0.1 0.0-0.1 10^3/uL Immature Granulocyte # (Auto) 2.3 H 0.0-0.1 10^3/uL Sodium Level 141 135-145 MMOL/L Potassium Level 3.2 L 3.6-5.0 MMOL/L Chloride Level 108 H 98-107 MMOL/L Carbon Dioxide Level 21 21-32 MMOL/L Anion Gap 12 5-14 MMOL/L Blood Urea Nitrogen 8 7-18 MG/DL Creatinine 0.73 0.60-1.30 MG/DL Estimat Glomerular Filtration Rate 111 BUN/Creatinine Ratio 11 Glucose Level 74 70-105 MG/DL Calcium Level 9.0 8.5-10.1 MG/DL My Orders Orders - ELINA VARGAS Ed Iv/Invasive Line Start (02/26/22 23:56) Clindamycin 600 Mg/50 Ml Ivpb (Cleocin P (02/27/22 00:15) Cbc With Automated Diff (02/27/22 00:10) Basic Metabolic Panel (02/27/22 00:10) Ed Iv/Invasive Line Start (02/27/22 00:10) Ns Iv 500 Ml (Sodium Chloride 0.9%) (02/27/22 00:15) Pantoprazole Injection (Protonix Injecti (02/27/22 00:30) Medications Given in ED Current Medications Medications Dose Ordered Sig/Carmelita Route Start Time Stop Time Status Last Admin Dose Admin Clindamycin Phosphate/Dextrose 50 ml @ 100 mls/hr ONCE ONCE IV 02/27/22 00:15 02/27/22 00:44 DC 02/27/22 00:27 100 MLS/HR Sodium Chloride 500 ml @ 0 mls/hr Q0M ONCE IV 02/27/22 00:15 02/27/22 00:16 DC 02/27/22 00:28 0 MLS/HR Vital Signs/I&O 02/27/22 00:03 Temp 36.2 Pulse 87 Resp 24 B/P (MAP) 157/92 (113) Pulse Ox 99 Capillary Refill : Progress Note : Time: 00:14 Progress Note We will give her a dose of clindamycin IV and check some labs to make sure she is not significantly anemic or having a worrisome white count. We will give her 500 cc of saline although she is tolerating orals okay. Reviewing her records it looks like she was supposed to go home on some clindamycin. We will make sure she has a prescription for that as well as some probiotics and help her get set back up with Dr. Hollins. Departure Impression Primary Impression: Endometritis following delivery Additional Impression: Vaginal bleeding Disposition: HOME, SELF-CARE Condition: Stable Departure-Patient Inst. Decision time for Depature: 01:02 Referrals: MOI NAVARRETE CLINICAL DOCUMENTATION NURSE (PCP) Primary Care Physician ANGELICA HOLLINS DO Patient Instructions: NO INSTRUCTIONS GIVEN Add. Discharge Instructions: occupational therapy assist the clindamycin and take 3 capsules with food 3 times a day for the next week. Make a follow-up appointment with Dr. Hollins, obstetrics this week or next. Return to the ER for high fevers, intractable nausea and vomiting or other worrisome symptoms. If you are having chest pain, shortness of air or passing blood clots larger than the chickens egg then you should call your doctor or return to the ER if after hours. Scripts Lactobacillus Acidophilus (Probiotic Acidophilus) 1.5 Mg (250 Million Cell) Capsule 1.5 MG PO BID for 7 Days, #14 CAP 0 Refills Prov: ELINA VARGAS 02/27/22 Clindamycin HCl (Clindamycin HCl) 150 Mg Capsule 450 MG PO TID for 7 Days, #63 CAP 0 Refills Prov: ELINA VARGAS 02/27/22 Copy Copies To 1: ANGELICA HOLLINS TITUS J Feb 27, 2022 00:15
[2022-02-27 00:24] LABS: BASOPHILS # (AUTO) 0.1 10^3/uL (0.0-0.1); BASOPHILS % (AUTO) 1 % (0-10); EOSINOPHILS # (AUTO) 0.1 10^3/uL (0.0-0.3); EOSINOPHILS % (AUTO) 1 % (0-10); HEMATOCRIT 31 % (35-52); HEMOGLOBIN 10.8 g/dL (11.5-16.0); LYMPHOCYTES # (AUTO) 2.8 10^3/uL (1.0-4.0); LYMPHOCYTES % (AUTO) 22 % (12-44); MEAN CORPUSCULAR HEMOGLOBIN 33 pg (25-34); MEAN CORPUSCULAR HGB CONC 35 g/dL (32-36); MEAN CORPUSCULAR VOLUME 93 fL (80-99); MEAN PLATELET VOLUME 10.9 fL (9.0-12.2); MONOCYTES # (AUTO) 1.2 10^3/uL (0.0-1.0); MONOCYTES % (AUTO) 9 % (0-12); NEUTROPHILS # (AUTO) 6.4 10^3/uL (1.8-7.8); NEUTROPHILS % (AUTO) 50 % (42-75); PLATELET COUNT 240 10^3/uL (130-400); WHITE BLOOD COUNT 12.9 10^3/uL (4.3-11.0)
[2022-02-27] MEDS ORDERED: PANTOPRAZOLE 40 MG (PROTONIX) VIAL IV ONE (00:30)
[2022-02-27 00:32] LABS: POTASSIUM 3.2 MMOL/L (3.6-5.0)
[2022-02-27 00:38] LABS: CREATININE SERUM 0.73 MG/DL (0.60-1.30)
[2022-02-27] MEDS ORDERED: LACT1.5C PO (01:06)
[2022-02-27] MEDS ORDERED: CLIN150C20 PO (01:06)
[2022-02-27 01:16] VITALS: BP 148/90
== END 2022-02-27 01:15 | disposition home or self-care (01) ==
LOC: EDUNIT# 23:53 → ER 23:56
DX: O72.1 Other immediate postpartum hemorrhage (principal); O86.12 Endometritis following delivery; Z28.310 Unvaccinated for COVID-19
CPT/HCPCS: 36415; 80048; 85025

== ENCOUNTER → 2022-06-12 | Outpatient (CLI) | payer MEDICAID ==
[~2022-06-12] MED LIST: CLIN150C20 PO; LACT1.5C PO
--- NOTE | 2022-06-12 17:46 | Diagnostic Imaging Report ---
PROCEDURE: US OB SINGLE FETUS <14 WKS. TECHNIQUE: Multiple real-time grayscale images were obtained over the gravid uterus in various projections. INDICATION: dating and viability. Positive test, 4 months COMPARISON: 12/05/2021 FINDINGS: There is a single live intrauterine gestation. The gestational sac appears normal in size and contour. The fetus has a crown-rump length of 45.1 mm corresponding with 11 weeks and 3 days and an estimated date of delivery of 12/29/2022. heart rate measures 155 BPM. The maternal adnexa demonstrate no free fluid. The ovaries are not seen. IMPRESSION: 1. Single live intrauterine gestation measuring at 11 weeks and 3 days. Dictated by: Dictated on workstation # [id number]
== END ==
LOC: RAD 11:00
PROVIDERS: ATTEND Nurse Practitioner Women's Health
DX: Z32.01 Encounter for pregnancy test, result positive (principal)
CPT/HCPCS: 76801

== ENCOUNTER → 2022-08-27 | Outpatient (CLI) | payer MEDICAID ==
--- NOTE | 2022-08-27 13:59 | Diagnostic Imaging Report ---
INDICATION: Routine care. TECHNIQUE: Multiple real-time grayscale images were obtained over the gravid uterus. COMPARISON: None. FINDINGS: There is a single live fetus in a breech presentation. heart rate was recorded at 153 BPM. Placenta is anterior and fundal. No previa is detected. Amniotic fluid index is 14.1 cm. Cervical length is 4.7 cm. kidneys, bladder, and stomach are unremarkable. brain is unremarkable. There is a four-chamber heart. There is a three-vessel cord with normal insertion. The spine is unremarkable. Biometrical measurements are as follows: Biparietal 4.87 cm, age 20 weeks 6 days. Head circumference 20.04 cm, age 22 weeks 2 days. Abdominal circumference 16.54 cm, age 21 weeks 5 days. Femur length 3.83 cm, age 22 weeks 2 days. Sonographic estimate age: 21 weeks 6 days. Sonographic estimated date of delivery: 01/01/2023. Estimated Weight: 457 gm (+/- 67 gm). LMP percentile: 24%. heart rate: 153 beats per minute. number: 1 of 1. IMPRESSION: Single live IUP of 21 weeks 6 days gestational age. Estimated date of confinement sonographically is 01/01/2023. Dictated by: Dictated on workstation # [id number]
== END ==
LOC: RAD 11:51
PROVIDERS: ATTEND Nurse Practitioner Women's Health
DX: Z34.02 Encounter for supervision of normal first pregnancy, second trimester (principal); Z3A.21 21 weeks gestation of pregnancy
CPT/HCPCS: 76805

== ENCOUNTER 2022-11-23 10:59 | Inpatient (IN) | payer MEDICAID ==
[~2022-11-23] VITALS: Ht 152.4 cm; Wt 75.2 kg
--- OUTSIDE RECORDS SUMMARY | 2022-11-23 11:04 | XMS REPORT | Clinical Summary ---
Author Author [facility] Organization [facility] Address Unknown Phone Unavailable Care Team Providers Care Internet Specialist Name Role Phone Wyatt Ghotra NP PCP Source Comments Some departments are not documenting in the electronic medical record. If you d o not see the information that you expected, contact Release of Information in [facility] [employer] Information Management department at [phone] for further assistan ce in locating additional records.[facility] Allergies Comments Active Allergy Reactions Severity Noted Date Clindamycin UNKNOWN Low 01/13/2018 Penicillins UNKNOWN Low 01/13/2018 Medications End Date Status Medication Sig Dispensed Refills Start Date Active dextroamphetamine-ampheta Take 15 mg by 0 mine (ADDERALL) 15 mg mouth daily tablet Active ALPRAZolam (XANAX) 1 mg Take 1 mg by 0 tablet mouth three times daily. Active oxycodone(+) (ROXICODONE, Take 10 mg by 0 OXY-IR) 10 mg tablet mouth every 6 hours as needed for Pain Active divalproex (DEPAKOTE ER) Take 1,500 mg 0 500 mg ER tablet by mouth at bedtime daily. Take with food. Active lurasidone (LATUDA) 40 mg Take 40 mg by 0 tablet mouth daily with dinner. Active QUEtiapine (SEROQUEL) 200 Take 50 mg by 0 mg tablet mouth daily. 1/4 tablet at night Active hydroCHLOROthiazide Take 25 mg by 0 (HYDRODIURIL) 25 mg mouth every tablet morning. Active Problems Problem Noted Date Convulsions 01/13/2018 Family History Relation Name Status Comments Father Alive Mother Alive Social History Date Tobacco Use Types Packs/Day Years Used Smoking Tobacco: Every Day Smokeless Tobacco: Never Comments Alcohol Use Standard Drinks/Week No 0 (1 standard drink = 0.6 o z pure alcohol) Sex Assigned at Date Recorded Not on file Obstetrics History Last Filed Vital Signs Reading Time Taken Comments Vital Sign 129/109 01/13/2018 9:52 AM CDT Blood Pressure 105 01/13/2018 9:52 AM CDT Pulse 36.4 C (97.5 F) 01/13/2018 9:52 AM CDT Temperature - - Respiratory Rate - - Oxygen Saturation - - Inhaled Oxygen Concentration 75.8 kg (167 lb 3.2 oz) 01/13/2018 9:52 AM CDT Weight 152.4 cm (5') 01/13/2018 9:52 AM CDT Height 32.65 01/13/2018 9:52 AM CDT Body Mass Index Plan of Treatment Health Maintenance Due Date Last Done Comments COVID-19 VACCINE (#1) 1988 HIV SCREENING 2003 DTAP/TDAP VACCINES (1 - 2006 Tdap) HEPATITIS C SCREENING 2006 PHYSICAL (COMPREHENSIVE) 2006 EXAM CERVICAL CANCER SCREENING 2009 DEPRESSION SCREENING 08/05/2022 INFLUENZA VACCINE (Season 05/05/2023 Ended) PNEUMOCOCCAL VACCINE 0-64 Aged Out No longer el igible based on patient's age to YRS complete this topic Results Not on filefrom Last 3 Months Insurance Type Payer Benefit Subscriber ID Effective Phone Address Plan / Dates Group [facility] [id number] 2017-P [phone] [id number] [place] [address] Care Teams Start Date End Date Internet Specialist Relationship Specialty 10/25/17 Wyatt Ghotra, JEFRY PCP - General Nurse [address] [place] [address]
[2022-11-23 11:13] VITALS: BP 134/83
[2022-11-23 11:14] VITALS: BP 134/83
--- NOTE | 2022-11-23 11:55 | History & Physical-OB/GYN ---
History of Present Illness History of Present Illness Reason for visit/HPI Patient presents at 34w GA due to leakage of fluid beginning earlier this morning; reports minimal contractions since then, denies vaginal bleeding, and reports good movement. Denies other systemic complaints is notable for: - h/o LEEP - h/o stillbirth delivered - Recent UTI, on abx - PCN allergy, unknown reaction but denies anaphylaxis - 3 prior NSVDs Date of Admission Nov 23, 2022 at 10:59 Date Seen by a Provider: Nov 23, 2022 Time Seen by a Provider: 11:30 I consulted on this patient on 11/23/22 11:46 Attending Physician Wyatt Ghotra Np Admitting Physician Admitting Physician: Aldair Thomas MD Attending Physician: Aldair Thomas MD Consult Allergies and Home Medications Allergies Coded Allergies: Penicillins (Unverified Allergy, Unknown, 12/10/14) cephalexin (Unverified Allergy, Unknown, 12/10/14) sulfamethoxazole (Verified Allergy, Unknown, 02/23/22) trimethoprim (Verified Allergy, Unknown, 02/23/22) Patient Home Medication List Home Medication List Reviewed: Yes Clindamycin HCl (Clindamycin HCl) 150 Mg Capsule, 450 MG PO TID Prescribed by: ELINA VARGAS on 02/27/22 010 Lactobacillus Acidophilus (Probiotic Acidophilus) 1.5 Mg (250 Million Cell) Capsule, 1.5 MG PO BID Prescribed by: ELINA VARGAS on 02/27/22 010 Past Grneaub-Tlpwsn-Jlgwyu Hx Immunizations Up To Date Tetanus Booster (TDap): Unknown Surgeries No Respiratory No Cardiovascular No Irregular Heartbeat Neurological No Reproductive System : Yes Hx Reproductive Disorders: No Sexually Transmitted Disease: No HIV/AIDS: No Female Reproductive Disorders: Ovarian Cyst Genitourinary No Gastrointestinal No Musculoskeletal No Chronic Back Pain Endocrine History of Endocrine Disorders: No HEENT History of HEENT Disorders: No Cancer No Psychosocial History of Psychiatric Problem: Yes Behavioral Health Disorders: Anxiety, PTSD, Bipolar, Depression Integumentary History of Skin or Integumenta: No Blood Transfusions Adverse Reaction to a Blood Tr: No Family Medical History Significant Family History: No Pertinent Family Hx Review of Systems Constitutional: no symptoms reported, see HPI EENTM: see HPI Respiratory: no symptoms reported Cardiovascular: no symptoms reported Gastrointestinal: see HPI Genitourinary: no symptoms reported : Yes Musculoskeletal: see HPI Skin: no symptoms reported Psychiatric/Neurological: No Symptoms Reported Physical Exam Physical Exam Vital Signs Capillary Refill : General Appearance: No Apparent Distress Respiratory: Normal Breath Sounds, No Respiratory Distress Cardiovascular: No Edema, Normal Peripheral Pulses Abdominal: non tender Cervix OS: open (FT/70/-3) Uterus: WNL Pelvic Exam: normal external exam, no cerv. motion tender Assessment/Plan Assessment and Plan Patient presents as 32 yo at 34w GA due to leakage of fluid. Evaluation is consistent with PPROM: - PPROM: Not in active labor at this time; cephalic on BSUS. I discussed with pt risks/benefits of induction vs expectant management per ACOG guidelines for PPROM at 34-36w; after considering risks/benefits, pt remains undecided but for the time being prefers expectant management. Will limit checks to as indicated clinically, and avoid latency abx due to GA > 34w. Monitor clinically for infection, and discussed with pt that I would recommend IOL if clinical signs of infection develop - Wellbeing. Pt received ANCS at 32w in [place] due to an episode of threatened labor; given GA > 34w, rescue ANCS course not indicated; would plan for resuscitation after delivery, and possible transfer depending on clinical course for . Intermittent monitoring for now, will increase to continuous in labor given GA - Reportedly GBS neg. Starting empiric ancef while seeking outside records (she reports GBS neg from 2 weeks ago in [place], see above); if confirmed GBS neg on outside records, or our collected swab here, can DC abx in absence of clinical indicators of infection Aldair Thomas MD Problems: (1) premature rupture of membranes (PPROM) with unknown onset of labor Admission Diagnosis Admission Status: Inpatient Order (span 2 midnights) Reason for Inpatient Admission: PPROM at 34w GA Diagnosis/Problems Diagnosis/Problems (1) premature rupture of membranes (PPROM) with unknown onset of labor ALDAIR THOMAS MD Nov 23, 2022 11:55
[2022-11-23] MEDS ORDERED: MINERAL OIL 30 ML UDC TOP PRN (12:15)
[2022-11-23 12:23] LABS: BASOPHILS % (AUTO) 0 % (0-10); EOSINOPHILS # (AUTO) 0.1 10^3/uL (0.0-0.3); EOSINOPHILS % (AUTO) 1 % (0-10); HEMATOCRIT 35 % (35-52); HEMOGLOBIN 12.1 g/dL (11.5-16.0); LYMPHOCYTES # (AUTO) 1.3 10^3/uL (1.0-4.0); LYMPHOCYTES % (AUTO) 12 % (12-44); MEAN CORPUSCULAR HEMOGLOBIN 33 pg (25-34); MEAN CORPUSCULAR HGB CONC 35 g/dL (32-36); MEAN CORPUSCULAR VOLUME 95 fL (80-99); MEAN PLATELET VOLUME 10.6 fL (9.0-12.2); MONOCYTES # (AUTO) 0.5 10^3/uL (0.0-1.0); MONOCYTES % (AUTO) 5 % (0-12); NEUTROPHILS # (AUTO) 9.2 10^3/uL (1.8-7.8); NEUTROPHILS % (AUTO) 82 % (42-75); PLATELET COUNT 291 10^3/uL (130-400); WHITE BLOOD COUNT 11.2 10^3/uL (4.3-11.0)
[2022-11-23] MEDS ORDERED: ceFAZolin INJECTION 2,000 MG in NS (IVPB) 50 ML IV ONE (12:30)
[2022-11-23] MEDS: D5 LR IV SOLUTION 1,000 ML IV SCH ×2 (13:38→21:30)
[2022-11-23] MEDS: CATHETER FLUSH 10 ML SYR IV SCH ×2 (14:00→22:00)
[2022-11-23 15:29] VITALS: BP 110/68
[2022-11-23] MEDS ORDERED: CEFAZOLIN IV SCH ×2 (19:00)
[2022-11-23] MEDS ORDERED: SODIUM CHLORIDE IV SCH ×2 (19:00)
[2022-11-23 19:01] VITALS: BP 126/64
[2022-11-23] MEDS ORDERED: ceFAZolin INJECTION 1,000 MG VIAL IV ONE (20:00)
[2022-11-23 20:51] VITALS: BP 127/78
[2022-11-24 00:35] VITALS: BP 129/73
[2022-11-24 06:15] VITALS: BP 113/57
--- NOTE | 2022-11-24 07:16 | Antepartum Progress Note ---
Antepartum Progress Antepartum Progress Date Seen by Provider: Nov 24, 2022 Time Seen by Provider: 07:00 Hospital Day # 2 Subjective: Denies complaints. Tolerating regular diet without nausea or vomiting. Fetus is active. No vaginal bleeding; some LOF still but described as light; mild intermittent contractions. Objective: VSS, see flowsheet Physical Exam General - alert and oriented, no apparent distress Abdomen - Soft, gravid, non-tender to palpation Ext - non-tender to palpation, no edema heart tones: Reassuring; two spontaneous variable decelerations overnight, otherwise cat I reactive FHT with moderate variability and accelerations Tocometer: no regular contractions Assessment/Plan Alice Quinones is a 32 at 34w GA, HD#2 admitted for presumed PPROM. I clarified with nursing staff that yesterday's ROM test was indeed a nitrazine swab; given this, and lack of clinical signs of labor following suspected PPROM, I've recommended performing ROMPlus swab today; if positive and confirms current diagnosis, would continue current plan of care; patient has so far expressed preference for expectant management when presented with risks/benefits of expectant management vs IOL, according to shared decision making for PPROM at 34+w per ACOG practice bulletin. - Monitor clinically for infection; if develops fever would recommend IOL - s/p ANCS at 32w for threatened PTL; no indication for rescue course after 34w - GBS neg on outside records - qShift NST if remains stable and continuing expectant management Vitals - Labs Vital Signs - I&O Vital Signs Date Time Temp Pulse Resp B/P (MAP) Pulse Ox O2 Delivery O2 Flow Rate FiO2 11/24/22 06:15 36.8 78 18 113/57 (75) Room Air 11/24/22 04:00 36.9 11/24/22 00:35 36.8 88 18 129/73 (91) Room Air 11/23/22 20:51 36.7 87 18 127/78 (94) 11/23/22 19:01 37.1 83 18 126/64 (84) 97 Room Air 11/23/22 15:29 36.9 94 18 110/68 (82) 97 Room Air 11/23/22 11:14 36.9 94 20 99 Room Air 11/23/22 11:13 36.9 87 18 134/83 (100) 99 Room Air I & O 11/24/22 07:00 Intake Total 100 ml Balance 100 ml Labs Laboratory Tests 11/23/22 12:10: White Blood Count 11.2H, Red Blood Count 3.66L, Hemoglobin 12.1, Hematocrit 35, Mean Corpuscular Volume 95, Mean Corpuscular Hemoglobin 33, Mean Corpuscular Hemoglobin Concent 35, Red Cell Distribution Width 13.2, Platelet Count 291, Mean Platelet Volume 10.6, Immature Granulocyte % (Auto) 1, Neutrophils (%) (Auto) 82H, Lymphocytes (%) (Auto) 12, Monocytes (%) (Auto) 5, Eosinophils (%) (Auto) 1, Basophils (%) (Auto) 0, Neutrophils # (Auto) 9.2H, Lymphocytes # (Auto) 1.3, Monocytes # (Auto) 0.5, Eosinophils # (Auto) 0.1, Basophils # (Auto) 0.0, Immature Granulocyte # (Auto) 0.1, Syphilis Serology Non-Reactive ALDAIR CONSTANTINO MD Nov 24, 2022 07:16
[2022-11-24 07:30] VITALS: BP 121/58
[2022-11-24 09:34] VITALS: BP 135/87
--- NOTE | 2022-11-24 10:45 | Antepartum Progress Note ---
Antepartum Progress Antepartum Progress Time Seen by Provider: 10:30 Antepartum update: patient requests to leave the hospital. She is mainly concerned about the lack of NICU services, and concerned that baby may require transfer after delivery. Additionally, she is not interested in hospital transfer by medical vehicle as she wants to go by private vehicle to another hospital. I have counseled the patient that: - Discharge is contraindicated in setting of PPROM, so that I cannot recommend discharge by private vehicle - Transfer to another hospital is not indicated as our current facility is equipped to deliver babies down to 34w, with appropriate protocols for care and/or transfer if indicated. - Leaving by private vehicle may place her at risk of rare but possible consequences of PPROM such as distress, labor, unattended delivery, or infection, among others, and that these could place her and baby at potential risk of life-threatening complications. She has voiced understanding of the above, and voices understanding of both my recommendation for continued hospitalization due to PPROM, and the rationale for that recommendation (to avoid the risks outlined above, among others), and that she accepts these risks. She has signed AMA paperwork to that effect Vitals - Labs Vital Signs - I&O Vital Signs Date Time Temp Pulse Resp B/P (MAP) Pulse Ox O2 Delivery O2 Flow Rate FiO2 11/24/22 09:34 36.7 94 18 135/87 (103) 100 Room Air 11/24/22 07:30 36.6 77 18 121/58 (79) 99 Room Air 11/24/22 06:15 36.8 78 18 113/57 (75) Room Air 11/24/22 04:00 36.9 11/24/22 00:35 36.8 88 18 129/73 (91) Room Air 11/23/22 20:51 36.7 87 18 127/78 (94) 11/23/22 19:01 37.1 83 18 126/64 (84) 97 Room Air 11/23/22 15:29 36.9 94 18 110/68 (82) 97 Room Air 11/23/22 11:14 36.9 94 20 99 Room Air 11/23/22 11:13 36.9 87 18 134/83 (100) 99 Room Air I & O 11/24/22 07:00 Intake Total 100 ml Balance 100 ml Labs Laboratory Tests 11/23/22 12:10: White Blood Count 11.2H, Red Blood Count 3.66L, Hemoglobin 12.1, Hematocrit 35, Mean Corpuscular Volume 95, Mean Corpuscular Hemoglobin 33, Mean Corpuscular Hemoglobin Concent 35, Red Cell Distribution Width 13.2, Platelet Count 291, Mean Platelet Volume 10.6, Immature Granulocyte % (Auto) 1, Neutrophils (%) (Auto) 82H, Lymphocytes (%) (Auto) 12, Monocytes (%) (Auto) 5, Eosinophils (%) (Auto) 1, Basophils (%) (Auto) 0, Neutrophils # (Auto) 9.2H, Lymphocytes # (Auto) 1.3, Monocytes # (Auto) 0.5, Eosinophils # (Auto) 0.1, Basophils # (Auto) 0.0, Immature Granulocyte # (Auto) 0.1, Syphilis Serology Non-Reactive 11/24/22 07:36: Membranes Rupture POSITIVE ALDAIR CONSTANTINO MD Nov 24, 2022 10:45
[2022-11-24 11:08] VITALS: BP 135/87
[2022-11-24] MEDS ORDERED: diphenhydrAMINE 50 MG/ML INJ (BENADRYL) IVP ONE (22:00)
== END 2022-11-24 11:08 | disposition left against medical advice (07) | DRG 833 ==
LOC: LDRP 10:59
PROVIDERS: ADMIT Student in an Organized Health Care Education/Training Program; ATTEND Student in an Organized Health Care Education/Training Program
DX: O42.913 Preterm premature rupture of membranes, unspecified as to length of time between rupture and onset of labor, third trimester (principal); O99.343 Other mental disorders complicating pregnancy, third trimester; F43.10 Post-traumatic stress disorder, unspecified; F31.9 Bipolar disorder, unspecified; F41.9 Anxiety disorder, unspecified; Z3A.34 34 weeks gestation of pregnancy; Z88.1 Allergy status to other antibiotic agents; Z88.0 Allergy status to penicillin; Z88.2 Allergy status to sulfonamides; Z88.8 Allergy status to other drugs, medicaments and biological substances
CPT/HCPCS: 36415; 84112; 85025; 86780; 86850; 86900; 86901; 87081